=== PATIENT | male | born 1955 | race Caucasian/White ===

== ENCOUNTER 2022-04-02 15:49 | Emergency (ER) | payer BC ==
[~2022-04-02] VITALS: Ht 193 cm; Wt 127.3 kg
[2022-04-02 15:53] VITALS: TEMP 97.9
[2022-04-02] MEDS ORDERED: NORCO 325 MG-51 TAB PO (16:51)
[2022-04-02 17:00] VITALS: BP 140/77; PULSE 85
== END 2022-04-02 17:15 | disposition home or self-care (01) ==
LOC: COL.ER 15:49
DX: S52.572A Other intraarticular fracture of lower end of left radius, initial encounter for closed fracture (principal); S52.612A Displaced fracture of left ulna styloid process, initial encounter for closed fracture; Z28.310 Unvaccinated for COVID-19; W11.XXXA Fall on and from ladder, initial encounter